=== PATIENT | male | born 1960 | race Caucasian/White ===

== ENCOUNTER → 2017-02-17 | Emergency (ER) | payer BC, OTHER ==
[~2017-02-17] VITALS: Ht 175.3 cm; Wt 80.7 kg
[~2017-02-17] MED LIST: NS (IVPB) 50 ML ONE; NS IV 1000 ML 1,000 ML IV ONE; TETANUS,DIPTH,PERTUSS P/F (BOOSTRIX) 0.5 ML VIAL IM STA; ceFAZolin 2 GM/50 ML NS 50 ML IV ONE; cefTRIAXone 1 GM (ROCEPHIN) VIAL ONE; fentaNYL INJECTION 100 MCG/2 ML AMP IVP ONE; fentaNYL INJECTION 100 MCG/2 ML AMP IVP STA; morphine INJ 10 MG/ML 1ML (SYR OR VIAL) IVP ONE; morphine INJ 10 MG/ML 1ML (SYR OR VIAL) IVP STA
[2017-02-17 23:17] LABS: MEAN PLATELET VOLUME 9.6 FL (7.4-10.4); RED BLOOD COUNT 5.26 10^6/uL (4.35-5.85); RED CELL DISTRIBUTION WIDTH 14.1 % (10.0-14.5)
[2017-02-17 23:18] LABS: BILIRUBIN,URINE NEGATIVE (NEGATIVE); KETONES,URINE NEGATIVE (NEGATIVE); LEUKOCYTE ESTERASE ,URINE 1+ (NEGATIVE); NITRITE,URINE NEGATIVE (NEGATIVE); PH,URINE 7 (5-9); PROTEIN,URINE 1+ (NEGATIVE); UROBILINOGEN,URINE NORMAL (NORMAL)
[2017-02-17 23:37] LABS: ALANINE AMINOTRANSFERASE 23 U/L (0-55); ANION GAP 12 MMOL/L (5-14); ASPARTATE AMINO TRANSFERASE 26 U/L (5-34); BILIRUBIN,DIRECT 0.4 MG/DL (0.0-0.3); BILIRUBIN,INDIRECT 1.1 MG/DL; BILIRUBIN,TOTAL 1.5 MG/DL (0.1-1.0); BLOOD UREA NITROGEN 18 MG/DL (7-18); BUN/CREATININE RATIO 11; CALCIUM 9.3 MG/DL (8.5-10.1); CARBON DIOXIDE 20 MMOL/L (21-32); CHLORIDE 107 MMOL/L (98-107); CREATININE SERUM 1.64 MG/DL (0.60-1.30); GFR ESTIMATED 44; GLUCOSE 170 MG/DL (70-105); POTASSIUM 3.4 MMOL/L (3.6-5.0); SODIUM 139 MMOL/L (135-145); TOTAL PROTEIN 7.1 G/DL (6.4-8.2)
[2017-02-17 23:40] LABS: ALCOHOL < 10 MG/DL (<10)
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
[2017-02-18 03:39] VITALS: BP 146/89
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
== END ==
LOC: EDUNIT# 23:02 → ER 23:04
DX: S82.892A Other fracture of left lower leg, initial encounter for closed fracture (principal); S92.002A Unspecified fracture of left calcaneus, initial encounter for closed fracture; S52.202A Unspecified fracture of shaft of left ulna, initial encounter for closed fracture; V43.52XA Car driver injured in collision with other type car in traffic accident, initial encounter
CPT/HCPCS: 36415; 70450; 70486; 71010; 71260; 72125; 72170; 73090; 73590; 73700; 74177; 80048; 80076; 80320; 81000; 85027; 86850; 86900; 86901; 90471; 90715; 93005; 93041; 96361; 96365; 96375; 99291